=== PATIENT | male | born 1945 | race Caucasian/White ===

== ENCOUNTER → 2023-04-11 14:03 | Outpatient (CLI) | payer MEDICARE, OTHER, SELFPAY ==
--- NOTE | 2023-04-11 14:09 | DI.RAD.S_ITS ---
PROCEDURE: XR LUMBAR SPINE MIN 4V INDICATIONS: LOW BACK PAIN TECHNIQUE: 5 views of the lumbar spine were acquired, including bilateral oblique views. COMPARISON: None. FINDINGS: Bones: 5 nonrib-bearing vertebrae are present. Mild dextrocurvature of the lower lumbar spine. Diffusely decreased osseous mineralization. There is multilevel facet arthropathy, worse at L4-5 and L5-S1. Mild multilevel disc height loss with degenerative endplate changes and spurring is present. No vertebral body compression fractures. No suspicious bony lesions. Soft tissues: Overlying bowel gas pattern is normal. No suspicious soft tissue calcifications. Atherosclerotic vascular calcifications. Oblique images: No definite pars defects. IMPRESSION: Multilevel degenerative changes of the lumbar spine. Dictated by: Jefferson Sunshine M.D. on 04/11/2023 at 15:36 Approved by: Jefferson Sunshine M.D. on 04/11/2023 at 15:37
== END ==
PROVIDERS: PCP Family Medicine; Referring Provider Anesthesiology; Visit Provider Anesthesiology
DX: M47.26 Other spondylosis with radiculopathy, lumbar region (principal); M47.27 Other spondylosis with radiculopathy, lumbosacral region; M51.16 Intervertebral disc disorders with radiculopathy, lumbar region; G89.29 Other chronic pain
CPT/HCPCS: 72110; 99214

== ENCOUNTER → 2023-04-15 18:25 | Outpatient (CLI) | payer MEDICARE, OTHER, SELFPAY ==
--- NOTE | 2023-04-15 18:32 | DI.MRI.S_ITS ---
PROCEDURE: MR LUMBAR SPINE WO CON INDICATIONS: Lumbar radiculopathy TECHNIQUE: Noncontrast sagittal T1 spin echo and T2 fast echo, sagittal STIR, and T2 fast spin echo through the lumbar spine. In cases with scoliosis, additional coronal T2 fast spin echo may be performed. COMPARISON: None. FINDINGS: Image quality: Excellent. Alignment and Curvature: There is normal bony alignment. Bone Marrow: Marrow is of normal overall signal. No acute vertebral body compression fractures. Spinal Cord: Conus medullaris terminates at the L1 level. Visualized cord demonstrates normal signal and size. Paraspinous Soft Tissues: No paravertebral masses. T12-L1: Normal appearance. L1-L2: Normal appearance. L2-L3: Disc space narrowing and posterior disc bulge with hypertrophic facet joints. Mild central stenosis. Mild bilateral foraminal stenosis. L3-L4: Disc space narrowing and circumferential disc bulge hypertrophic facet joints. Mild central stenosis. Moderate bilateral foraminal stenosis greater on the left L4-L5: Disc space narrowing and hypertrophic facet joints results in mild central stenosis. Moderate bilateral foraminal stenosis. L5-S1: Disc height is preserved. No central or foraminal stenosis. Incidental perineural cysts noted in the sacral foramina IMPRESSION: Multilevel degenerative disc disease and arthropathy results in varying degrees of central and foraminal stenosis including moderate bilateral foraminal stenosis greater on the left at L3-4 Approved by: Kevan Nettles M.D. on 04/16/2023 at 14:54
== END ==
LOC: MRI 18:30
PROVIDERS: PCP Family Medicine; Referring Provider Anesthesiology; Visit Provider Anesthesiology
DX: M51.16 Intervertebral disc disorders with radiculopathy, lumbar region (principal); M47.26 Other spondylosis with radiculopathy, lumbar region; M48.061 Spinal stenosis, lumbar region without neurogenic claudication
CPT/HCPCS: 72148

== ENCOUNTER 2023-05-08 07:58 | Outpatient (CLI) | payer MEDICARE, OTHER, SELFPAY ==
[2023-05-08 08:05] VITALS: BP 146/67; PULSE 54; RESP 18; TEMP 36.2; O2SAT 100
--- NOTE | 2023-05-08 08:16 | PC.NURSE ---
Patient does not have a ride. Reports that he is using [employer] and that his partner will pick him up at [place].
--- NOTE | 2023-05-08 08:30 | DI.RAD.S_ITS ---
PROCEDURE: PAIN L INTERLAMINAR/CAUDAL INJ INDICATIONS: lumbar radiculopathy COMPARISON: None. FINDINGS: Fluoroscopic spot filming was performed to verify placement of spinal needles at the bilateral L4-5 level(s), as labeled on the films. Appropriate location(s) of the needle tip(s) was confirmed by injection of iodinated contrast. IMPRESSION: Fluoroscopic support for interlaminar epidural steroid injection. Please see separate procedure note for further details. Dictated by: Gilberto Lewis M.D. on 05/08/2023 at 9:07 Approved by: Gilberto Lewis M.D. on 05/08/2023 at 9:08
[2023-05-08 08:39] VITALS: BP 157/70; PULSE 56; RESP 13; O2SAT 100
[2023-05-08] MEDS: iopamidoL 15 ML VIAL 3 ML INJ (08:40)
[2023-05-08] MEDS: DEXAMETHASONE 10 MG/ML VIAL INJ (08:40)
[2023-05-08 08:44] VITALS: BP 144/64; PULSE 55; RESP 13; O2SAT 100
[2023-05-08 08:50] VITALS: BP 134/57; PULSE 58; RESP 20; O2SAT 99
--- NOTE | 2023-05-08 12:00 | P.PCN_ITS ---
Date/Time/Diagnoses Date of procedure: 05/08/23 Time of procedure: 08:30 Procedure Notes Physician: Jimenez Bradford Total Fluoroscopy time (seconds): 11 Total sedation minutes: 0 Procedure in detail & Post-procedure care: L4-5 Interlaminar Epidural Steroid Injection Indications: Cody is presenting for treatment of lumbar radiculopathy with low back and leg pain. Preoperative diagnosis: Lumbar radiculopathy Postoperative diagnosis: Same Focused Examination: Ax3 Mood and affect are normal Vital Signs: VSS Consent: Following review of allergies and potential side effects/complications, including, but not necessarily limited to, infection, allergic reaction, local tissue breakdown, stroke, temporary or permanent nerve injury, paralysis, and possible , the patient indicated that they understood and agreed to proceed.? An informed consent document was signed by the patient, witnessed by a nurse and placed in the patient's chart.? Additionally, other treatment options including medications and physical therapy were reviewed with the patient. All questions were answered. Site was then marked. Anesthesia: Local Position: Prone Monitoring: NIBP, Pulse oximetry, 3 lead EKG Needle used: 18 G 3.5? Tuohy Contrast: Isovue 300M Injectate: Dexamethasone 10 mg with 1% lidocaine 2 mL Technique: The skin was prepped with chloraprep and then draped in a sterile fashion. Time out was performed as per protocol. Oxygen applied via NC. Skin and subcutaneous structures of the needle entry site was then infiltrated with 3 mL of lidocaine 1%. Under AP, lateral and contralateral oblique fluoroscopic control, the Tuohy needle was guided into the L4-5 epidural space. The space was accessed with loss of resistance technique. Isovue 300M was then injected and the spread was consistent with the epidural space. There was no evidence for intravascular or intrathecal uptake. After negative aspiration, the above- mentioned injectate was then slowly administered and the needle withdrawn. The patient expressed no unusual discomfort or paresthesias during the injection. Band-Aids applied to injection sites. EBL: less than 1 ml Complications: None Post Procedure: Patient was taken to the recovery and monitored. The patient was provided a Pain Log to continue to record the patient's response to the target- specific procedure prior to the patient's follow-up visit with the referring physician. Patient was stable upon discharge. Detailed post procedure instructions were provided. Patient was asked to call in the event of worsening pain, fever, weakness, numbness or bladder or bowel incontinence.
== END 2023-05-08 08:57 | disposition home or self-care (01) ==
LOC: RAD 07:59
PROVIDERS: PCP Family Medicine; Referring Provider Anesthesiology; Visit Provider Anesthesiology
DX: M54.16 Radiculopathy, lumbar region (principal)
CPT/HCPCS: 62323; J1100